=== PATIENT | male | born 1990 | race Caucasian/White ===

== ENCOUNTER 2016-11-26 22:00 | Emergency (ER) | payer BC, OTHER ==
[2016-11-26] MEDS ORDERED: Ondansetron HCl/PF 4 MG/2 ML Vial ONE (22:28)
[2016-11-26] MEDS ORDERED: Ketorolac Tromethamine 30 MG/ML VIAL ONE (22:28)
[2016-11-26 22:54] LABS: ALT (SGPT) 19 U/L (8-55); AST (SGOT) 14 U/L (5-34); Albumin 4.7 g/dL (3.5-5.0); Alkaline Phosphatase 93 U/L (40-150); Anion Gap 21 mmol/L (10-20); BUN (Urea Nitrogen) 13 mg/dL (8.9-20.6); Bilirubin, Total 1.2 mg/dL (0.2-1.2); Calc. Creatinine Clearance 0 mL/min (70-130); Calcium 8.5 mg/dL (7.8-10.44); Carbon Dioxide 16 mmol/L (22-29); Chloride 106 mmol/L (98-107); Estimated GFR-MDRD 88; Globulin 2.6 g/dL (2.4-3.5); Glucose 132 mg/dL (70-105); Lipase 14 U/L (8-78); Potassium 3.5 mmol/L (3.5-5.1); Protein, Total 7.3 g/dL (6.0-8.3); Sodium 139 mmol/L (136-145)
[2016-11-26 23:11] LABS: Eosinophils 1 % (0-10); Hemoglobin 17.2 g/dL (14.0-18.0); Lymphocytes 6 % (21-51); MDiff Complete? YES; Mean Corpuscular HGB CONC 35.8 g/dL (32.0-36.0); Mean Corpuscular Volume 86.6 fl (80.0-94.0); Mean Platelet Volume 6.1 fL (7.4-10.4); Monocytes 6 % (0-10); Neutrophil 87 % (42-75); PLT Morphology Comment Appears Adequate; Platelet Count 183 thou/uL (130-400); RBC Distribution Width 11.3 % (11.5-14.5); RBC Morphology Normal; Red Blood Cell (RBC) Count 5.55 mill/uL (4.70-6.10); Small Platelets SLIGHT; White Blood Cell (WBC) Count 7.2 thou/uL (4.8-10.8)
--- NOTE | 2016-11-26 23:37 | RAD ---
TWO VIEWS ABDOMEN UPRIGHT CHEST: Comparison: None. History: Nausea, vomiting. FINDINGS: Supine and upright views of the abdomen and upright chest shows a nonspecific, nonobstructed pattern . Air is seen throughout the colon. No free air is seen on upright examinations. Cardiomediastinal silhouette is normal in size. There is no evidence of mass, consolidation, or pleu ral effusion. IMPRESSION: Nonobstructed bowel gas pattern. POS: [facility]
== END 2016-11-26 23:58 | disposition home or self-care (01) ==
LOC: BURERS 22:00
DX: A08.4 Viral intestinal infection, unspecified (principal)
CPT/HCPCS: 36415; 74022; 80053; 83690; 85025; 93005; 94760; 96361; 96374; 96375; J1885; J2405